=== PATIENT | male | born 1960 | race Caucasian/White ===

== ENCOUNTER 2018-11-10 16:36 | Emergency (ER) | payer BC, OTHER ==
[~2018-11-10] VITALS: Ht 175.3 cm; Wt 94.8 kg
[2018-11-10 16:59] LABS: ABSOLUTE NEUTROPHILS 5.1 thou/uL (1.4-8.2); BASOPHILS 0.7 % (0.0-2.0); EOSINOPHILS 1.1 % (0.0-3.0); HEMATOCRIT 38.1 % (42.0-52.0); HEMOGLOBIN 13.2 gm/dL (14.0-18.0); LYMPHOCYTES 27.7 % (24.0-44.0); MCH 30.3 pg (26.0-34.0); MCHC 34.6 g/dL (28.0-37.0); MCV 87.7 fL (80.0-100.0); MONOCYTES 7.2 % (1.0-8.0); PLATELET COUNT 276 thou/uL (150-400); POLYS 63.3 % (36.0-66.0); RBC 4.35 mil/uL (4.50-6.00); RDW 13.4 % (10.5-14.5)
[2018-11-10 17:06] LABS: CALCIUM 9.3 mg/dL (8.5-10.1); CREATININE 1.1 mg/dL (0.7-1.3); POTASSIUM 4.3 mmol/L (3.5-5.1)
[2018-11-10 17:12] LABS: PROTIME 10.5 Seconds (9.3-11.4)
[2018-11-10] MEDS ORDERED: CETIRIZINE HCL5 MG PO (17:22)
[2018-11-10] MEDS ORDERED: KEFLEX500 M1 PO (18:10)
[2018-11-10] MEDS ORDERED: NORCO 5-325 TA1 EACH PO (18:10)
[2018-11-10 20:12] VITALS: BP 127/75
== END 2018-11-10 20:13 | disposition home or self-care (01) ==
LOC: ER 16:36
PROVIDERS: Physician Assistant
DX: R04.0 Epistaxis (principal); Z88.1 Allergy status to other antibiotic agents